=== PATIENT | female | born 1995 | race Two or more races ===

== ENCOUNTER 2017-07-21 23:37 | Outpatient (CLI) | payer BC, MEDICAID ==
[2017-07-22 00:27] LABS: APPEARANCE,URINE SLIGHTLY-CLOUDY; BILIRUBIN,URINE NEGATIVE (NEGATIVE); COLOR,URINE YELLOW; GLUCOSE, URINE NEGATIVE (NEGATIVE); KETONES,URINE NEGATIVE (NEGATIVE); LEUKOCYTE ESTERASE,URINE TRACE (NEGATIVE); NITRITE,URINE NEGATIVE (NEGATIVE); PROTEIN,URINE NEGATIVE (NEGATIVE); URINE SPECIFIC GRAVITY 1.005; UROBILINOGEN,URINE NEGATIVE mg/dL (<2.0)
[2017-07-22 00:41] LABS: URINE AMPHETAMINES SCREEN NEGATIVE; URINE BARBITURATES SCREEN NEGATIVE; URINE BENZODIAZEPINES SCREEN NEGATIVE; URINE COCAINE SCREEN NEGATIVE; URINE MARIJUANA (THC) SCREEN NEGATIVE; URINE METHADONE SCREEN NEGATIVE; URINE PHENCYCLIDINE SCREEN NEGATIVE
--- NOTE | 2017-07-22 01:36 | RADIOLOGY REPORT (SQ) ---
EXAM DESCRIPTION: US GREATER THAN 14 WEEKS CLINICAL HISTORY: 22 years Female, vaginal bleeding Comparison: 8.25.15 TECHNIQUE: Transvaginal. LIMITATIONS: None. FINDINGS: EGA is 31w5d with TAPAN of 09/18/17 EFW is 1571g at 46% ([place]) Cardiac activity: 135-bpm. ANANTH: 14.4-cm Placenta: Anterior. No evidence of abruption. No placenta previa. Presentation: Vertex Cervical length: 3.5-cm Anatomic survey: No significant abnormality including visualization of a four chambered heart, three-vessel cord, cord insertion, kidneys, bladder, stomach, spine, intracranial structures, and upper/lower extremities. IMPRESSION: 1. Live fetus at 31w5d. 2. Normal anatomic survey.
== END 2017-07-22 01:21 | disposition home or self-care (01) ==
LOC: LC 23:37
PROVIDERS: ATTEND Obstetrics & Gynecology
PROC: 4A1HXCZ Monitoring of Products of Conception, Cardiac Rate, External Approach (ICD-10-PCS; principal; 2017-07-21)
DX: O46.93 Antepartum hemorrhage, unspecified, third trimester (principal); Z3A.31 31 weeks gestation of pregnancy
CPT/HCPCS: 76805; 80307; 81001